=== PATIENT | male | born 1955 | race Caucasian/White ===

== ENCOUNTER 2017-08-02 08:03 | Emergency (ER) | payer MEDICARE ==
[2017-08-02] MEDS ORDERED: Meclizine TAB* 12.5 MG PO ONE (08:46)
[2017-08-02 09:22] LABS: ABS Basophils 0 10^3/ul (0-0.2); ABS Eosinophils 0.2 10^3/ul (0-0.6); ABS Lymphocytes 1.2 10^3/ul (1.0-4.8); ABS Monocytes 0.6 10^3/ul (0-0.8); ABS Neutrophils 10.3 10^3/ul (1.5-7.7); ABS Nucleated RBC 0 10^3/ul; Eosinophil % 1.4 % (0-6); Hematocrit 43 % (42-52); Hemoglobin 14.5 g/dl (14.0-18.0); Mean Corpuscular HGB Conc 34 g/dl (31-36); Mean Corpuscular Hemoglobin 30 pg (27-31); Mean Corpuscular Volume 90 fL (80-94); Mean Platelet Volume 9 um3 (7.4-10.4); Nucleated Red Blood Cells % 0; Platelet Count 114 10^3/ul (150-450); Red Blood Count 4.78 10^6/ul (4.0-5.4); Red Cell Distribution Width 13 % (10.5-15); White Blood Count 12.4 10^3/ul (3.5-10.8)
--- NOTE | 2017-08-02 09:25 | RAD ---
INDICATION: Vertigo. COMPARISON: Comparison is made with prior CT of the brain from July 20, 2015. TECHNIQUE: Contiguous axial sections of the brain were obtained from the skull base to the vertex without contrast. FINDINGS: The ventricles, cisterns and sulci are within normal limits. No significant focal abnormality or mass effect is seen. There is no evidence for hemorrhage. There is a 1.2 cm nodular density in the right maxillary sinus most consistent with a mucous retention cyst or polyp. There is mild mucosal thickening within the ethmoid air cells. The visualized portion of the paranasal sinuses and mastoid air cells otherwise appear clear. IMPRESSION: NO EVIDENCE FOR GROSS ACUTE INFARCT, MASS EFFECT OR HEMORRHAGE.
[2017-08-02 09:29] LABS: INR 0.9 (0.77-1.02)
[2017-08-02 09:38] LABS: EGFR Non-African American 92.9 (>60)
[2017-08-02 11:57] LABS: Urine Appearance Cloudy; Urine Blood Negative (Negative); Urine Color Yellow; Urine Ketones 1+ (Negative); Urine Protein Negative (Negative); Urine Specific Gravity 1.024 (1.010-1.030); Urine Urobilinogen Negative (Negative)
[2017-08-02 12:50] VITALS: BP 151/82
--- NOTE | 2017-08-02 18:36 | ED ---
Remy Mcfadden Angela, scribed for Arnel Ryan MD on 08/02/17 at 0821 . Dizziness - HPI Summary HPI Summary: This pt is a 61 y/o male presenting to [facility] c/o dizziness since this morning. Pt reports when he gets up he can't stand up. He describes his dizziness as difficulty with balance. He additionally notes tinnitus. Denies visual changes. His dizziness is aggravated with movement and is alleviated with closing his eyes. PMHx includes chronic back pain for which he takes tramadol, TIA. Pt notes during his past TIA, pt had similar symptoms to today's. NKDA. - History Of Current Complaint Chief Complaint: EDDizziness Stated Complaint: DIZZY, SWEATING, Time Seen by Provider: 08/02/17 08:17 Hx Obtained From: Patient Onset/Duration: Still Present Timing: Hours Severity Currently: Moderate Character: Dizzy - balance problems Aggravating Factor(s): Other - movement Alleviating Factor(s): Closing Eyes Associated Signs And Symptoms: Positive: Tinnitus, Unsteady Gait. Negative: Vomiting, Visual Changes - Allergies/Home Medications Allergies/Adverse Reactions: Allergies Allergy/AdvReac Type Severity Reaction Status Date / Time Bee Venom Allergy Facial Verified 06/21/16 14:50 Redness/Flushing Home Medications: Home Medications Amphetamine MIXED SALT TAB* [Adderall TAB*] 5 mg PO .DAILY@1200 08/02/17 [ History Confirmed 08/02/17] Amphetamine MIXED SALT TAB* [Adderall TAB*] 10 mg PO QAM 08/02/17 [History Confirmed 08/02/17] Metoprolol Succinate XL TAB* [Toprol XL TAB*] 12.5 mg PO QPM 08/02/17 [History Confirmed 08/02/17] Simvastatin TAB(NF) [Zocor(NF)] 20 mg PO BEDTIME 08/02/17 [History Confirmed 06/09] clonazePAM TAB(*) [KlonoPIN TAB(*)] 0.25 - 0.5 mg PO BID PRN 08/02/17 [History Confirmed 08/02/17] traMADol TAB* [Ultram*] 50 mg PO Q6HR PRN 08/02/17 [History Confirmed 08/02/17] PMH/Surg Hx/FS Hx/Imm Hx Endocrine/Hematology History: Denies: Hx Anticoagulant Therapy, Hx Diabetes, Hx Thyroid Disease Cardiovascular History: Reports: Hx Hypertension Denies: Hx Pacemaker/ICD Respiratory History: Denies: Hx Asthma, Hx Chronic Obstructive Pulmonary Disease (COPD) GI History: Reports: Hx Gastroesophageal Reflux Disease - IMPROVED AFTER GALLBLADDER REMOVED History: Reports: Hx Kidney Stones - AT AGE 18, Other Problems/Disorders - DIVERTICULUM BLADDER- 15 YEARS AGO- SURGERY FOR Denies: Hx Renal Disease Musculoskeletal History: Reports: Hx Arthritis, Hx Back Problems, Other Musculoskeletal History - SCIATICA LEFT LEG Sensory History: Denies: Hx Contacts or Glasses, Hx Hearing Aid Opthamlomology History: Denies: Hx Contacts or Glasses Neurological History: Reports: Other Neuro Impairments/Disorders - BIPOLAR Denies: Hx Dementia, Hx Seizures Psychiatric History: Reports: Hx Anxiety, Hx Depression Denies: Hx Eating Disorder, Hx Panic Disorder, Hx of Violent Episodes Against Others, Hx Substance Abuse - Surgical History Surgery Procedure, Year, and Place: BLADDER/ GALLBLADDER 15 YEARS AGO. HERNIA REPAIR, BACK SURGERY 2011 Hx Anesthesia Reactions: No Infectious Disease History: Denies: Hx Hepatitis, Hx Human Immunodeficiency Virus (HIV), Traveled Outside the [place] in Last 30 Days - Family History Known Family History: Positive: Other - Father: brain tumor - Social History Alcohol Use: None Substance Use Type: Reports: None Smoking Status (MU): Current Every Day Smoker Type: Cigarettes Amount Used/How Often: 18 cigarettes/day Have You Smoked in the Last Year: Yes Review of Systems Negative: Fever, Chills Negative: Blurred Vision, Diplopia Positive: Other - tinnitus Respiratory: Negative Gastrointestinal: Negative Neurological: Other - POS: dizziness All Other Systems Reviewed And Are Negative: Yes Physical Exam - Summary Physical Exam Summary: Appearance: The patient is well-nourished in no acute distress and in no acute pain. Skin: The skin is warm and dry and skin color reflects adequate perfusion. HEENT: The head is normocephalic and atraumatic. The pupils are equal and reactive. The conjunctivae are clear and without drainage. Pt has horizontal nystagmus with a vast component on the left that doesn't fatigue. Nares are patent and without drainage. Mouth reveals moist mucous membranes and the throat is without erythema and exudate. The external ears are intact. The ear canals are patent and without drainage. The tympanic membranes are intact. Neck: the neck is supple with full range of motion and non-tender. There are no carotid bruits. There is no neck vein distension. Respiratory: Chest is non-tender. Lungs are clear to auscultation and breath sounds are symmetrical and equal. Cardiovascular: Heart is regular rate and rhythm. There is no murmur or rub auscultated. There is no peripheral edema and pulses are symmetrical and equal. Abdomen: The abdomen is soft and non-tender. There are normal bowel sounds heard in all four quadrants and there is no organomegaly palpated. Musculoskeletal: There is no back tenderness noted. Extremities are non-tender with full range of motion. There is good capillary refill. There is no peripheral edema or calf tenderness elicited. Neurological: Patient is alert and oriented to person, place and time. The patient has symmetrical motor strength in all four extremities. Cranial nerves are grossly intact. Pt has horizontal nystagmus with a vast component on the left that doesn't fatigue. Psychiatric: The patient has an appropriate affect and does not exhibit any anxiety or depression. Triage Information Reviewed: Yes Vital Signs On Initial Exam: Initial Vitals Temp Pulse Resp BP Pulse Ox 96.8 F 67 8 162/84 96 08/02/17 08:09 08/02/17 08:09 08/02/17 08:09 08/02/17 08:09 08/02/17 08:09 Vital Signs Reviewed: Yes - Paul Coma Scale Coma Scale Total: 15 Diagnostics - Vital Signs Vital Signs Temp Pulse Resp BP Pulse Ox 08/02/17 08:09 96.8 F 67 8 162/84 96 - Laboratory Lab Results: Lab Results 08/02/17 08/02/17 08/02/17 Range/Units 09:07 09:07 09:07 WBC 12.4 H (3.5-10.8) 10^3/ul RBC 4.78 (4.0-5.4) 10^6/ul Hgb 14.5 (14.0-18.0) g/dl Hct 43 (42-52) % MCV 90 (80-94) fL MCH 30 (27-31) pg MCHC 34 (31-36) g/dl RDW 13 (10.5-15) % Plt Count 114 L (150-450) 10^3/ul MPV 9 (7.4-10.4) um3 Neut % (Auto) 83.5 H (38-83) % Lymph % (Auto) 10.0 L (25-47) % [place]field % (Auto) 4.7 (1-9) % Eos % (Auto) 1.4 (0-6) % Baso % (Auto) 0.4 (0-2) % Absolute Neuts (auto) 10.3 H (1.5-7.7) 10^3/ul Absolute Lymphs (auto) 1.2 (1.0-4.8) 10^3/ul Absolute Monos (auto) 0.6 (0-0.8) 10^3/ul Absolute Eos (auto) 0.2 (0-0.6) 10^3/ul Absolute Basos (auto) 0 (0-0.2) 10^3/ul Absolute Nucleated RBC 0 10^3/ul Nucleated RBC % 0 INR (Anticoag Therapy) 0.90 (0.77-1.02) Sodium 137 (133-145) mmol/L Potassium 4.0 (3.5-5.0) mmol/L Chloride 104 (101-111) mmol/L Carbon Dioxide 28 (22-32) mmol/L Anion Gap 5 (2-11) mmol/L BUN 15 (6-24) mg/dL Creatinine 0.84 (0.67-1.17) mg/dL Est GFR ( Amer) 119.5 (>60) Est GFR (Non-Af Amer) 92.9 (>60) BUN/Creatinine Ratio 17.9 (8-20) Glucose 176 H (70-100) mg/dL Lactic Acid (0.5-2.0) mmol/L Calcium 9.3 (8.6-10.3) mg/dL Magnesium 2.0 (1.9-2.7) mg/dL Total Bilirubin 0.30 (0.2-1.0) mg/dL AST 20 (13-39) U/L ALT 23 (7-52) U/L Alkaline Phosphatase 48 (34-104) U/L Troponin I 0.01 (<0.04) ng/mL C-Reactive Protein 1.27 (< 5.00) mg/L Total Protein 6.5 (6.4-8.9) g/dL Albumin 4.2 (3.2-5.2) g/dL Globulin 2.3 (2-4) g/dL Albumin/Globulin Ratio 1.8 (1-3) TSH 1.58 (0.34-5.60) mcIU/mL Urine Color Urine Appearance Urine pH (5-9) Ur Specific [place] (1.010-1.030) Urine Protein (Negative) Urine Ketones (Negative) Urine Blood (Negative) Urine Nitrate (Negative) Urine Bilirubin (Negative) Urine Urobilinogen (Negative) Ur Leukocyte Esterase (Negative) Urine Glucose (Negative) 08/02/17 08/02/17 Range/Units 09:07 11:30 WBC (3.5-10.8) 10^3/ul RBC (4.0-5.4) 10^6/ul Hgb (14.0-18.0) g/dl Hct (42-52) % MCV (80-94) fL MCH (27-31) pg MCHC (31-36) g/dl RDW (10.5-15) % Plt Count (150-450) 10^3/ul MPV (7.4-10.4) um3 Neut % (Auto) (38-83) % Lymph % (Auto) (25-47) % Whitfield % (Auto) (1-9) % Eos % (Auto) (0-6) % Baso % (Auto) (0-2) % Absolute Neuts (auto) (1.5-7.7) 10^3/ul Absolute Lymphs (auto) (1.0-4.8) 10^3/ul Absolute Monos (auto) (0-0.8) 10^3/ul Absolute Eos (auto) (0-0.6) 10^3/ul Absolute Basos (auto) (0-0.2) 10^3/ul Absolute Nucleated RBC 10^3/ul Nucleated RBC % INR (Anticoag Therapy) (0.77-1.02) Sodium (133-145) mmol/L Potassium (3.5-5.0) mmol/L Chloride (101-111) mmol/L Carbon Dioxide (22-32) mmol/L Anion Gap (2-11) mmol/L BUN (6-24) mg/dL Creatinine (0.67-1.17) mg/dL Est GFR ( Amer) (>60) Est GFR (Non-Af Amer) (>60) BUN/Creatinine Ratio (8-20) Glucose (70-100) mg/dL Lactic Acid 1.0 (0.5-2.0) mmol/L Calcium (8.6-10.3) mg/dL Magnesium (1.9-2.7) mg/dL Total Bilirubin (0.2-1.0) mg/dL AST (13-39) U/L ALT (7-52) U/L Alkaline Phosphatase (34-104) U/L Troponin I (<0.04) ng/mL C-Reactive Protein (< 5.00) mg/L Total Protein (6.4-8.9) g/dL Albumin (3.2-5.2) g/dL Globulin (2-4) g/dL Albumin/Globulin Ratio (1-3) TSH (0.34-5.60) mcIU/mL Urine Color Yellow Urine Appearance Cloudy Urine pH 7.0 (5-9) Ur Specific [place] 1.024 (1.010-1.030) Urine Protein Negative (Negative) Urine Ketones 1+ H (Negative) Urine Blood Negative (Negative) Urine Nitrate Negative (Negative) Urine Bilirubin Negative (Negative) Urine Urobilinogen Negative (Negative) Ur Leukocyte Esterase Negative (Negative) Urine Glucose 1+(50 mg/dl) H (Negative) Result Diagrams: 08/02/17 09:07 08/02/17 09:07 Lab Statement: Any lab studies that have been ordered have been reviewed, and results considered in the medical decision making process. - CT Brain CT CT Interpretation: No Acute Changes - IMPRESSION: No evidence for gross acute infarct, mass effect or hemorrhage. Dr. Ryan has reviewed this radiology report. CT Interpretation Completed By: Radiologist - EKG 08:12 Cardiac Rate: NL EKG Rhythm: Sinus Rhythm - at 67 bpm EKG Interpretation: Left axis deviation Dizzy Course/Dx - Course Course Of Treatment: Mr. Johnson presented with what seemed to be a peripheral vertigo. His W/U was negative and he improved a lot with meclizine. Dr. Trivedi saw him and felt that is was peripheral and he was safe to go with symptomatic treatment. - Diagnoses Provider Diagnoses: Peripheral vertigo - Provider Notifications Discussed Care Of Patient With: Kevin Trivedi Time Discussed With Above Provider: 10:17 Instructed by Provider To: Other - I discussed pt care with Dr. Trivedi, neurologist, who will come see the pt in the ED. Discharge - Discharge Plan Condition: Stable Disposition: HOME Prescriptions: Meclizine TAB* [Antivert 12.5 TAB*] 25 mg PO TID PRN #20 tab PRN Reason: Dizziness Ondansetron ODT TAB* [Zofran Odt TAB*] 4 mg PO Q6H PRN #20 tab.odt PRN Reason: Nausea/Vomiting Patient Education Materials: Vertigo (ED) Referrals: Frantz Weathers MD [Primary Care Provider] - Additional Instructions: Please follow up with your primary care provider next week. RETURN TO THE ED FOR ANY WORSENING SYMPTOMS. The documentation as recorded by the Remy davis Angela accurately reflects the service I personally performed and the decisions made by me, Arnel Ryan MD.
--- NOTE | 2017-08-02 20:53 | CONS ---
NEUROLOGY CONSULTATION: DATE OF CONSULTATION: 08/02/17 LOCATION: He is in the emergency room. REFERRING PHYSICIAN: Dr. Ryan. CHIEF COMPLAINT: Dizziness. HISTORY OF PRESENT ILLNESS: Dustin Johnson is a 61-year-old man who was in his usual state of health when he got up this morning. Shortly thereafter, he started to feel somewhat dizzy. It progressed over about 45 minutes to the point where he felt nauseous and very dizzy with a tendency to veer to the right. He presented to the emergency room. Since he has been here, he has received some meclizine and he feels a little bit better. He still has some nausea, but has not vomited. Prior to this morning, he had been feeling reasonably well. He has not had any recent colds, fevers, sore throats, earaches, or other signs or symptoms of infectious illness. He has not had any changes in his chronic medical therapies. He has not noticed any change in hearing or ear pain. There is no history of recent trauma. His has had upper respiratory infection and she is present and provides additional history. 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 He was admitted with vertigo and had a normal brain MRI in 2006. 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 MEDICATIONS: At home are: 1. Lamotrigine 400 mg p.o. daily. 2. Adderall 10 mg p.o. q.a.m. and 5 mg at noon. 3. Clonazepam 0.25 mg b.i.d. p.r.n. anxiety. 4. Metoprolol 12.5 mg p.o. daily. 5. Tramadol 50 mg p.o. q. 6 hours p.r.n. back pain. 6. Simvastatin 20 mg p.o. daily. 7. Trazodone 50 mg p.o. q.h.s. ALLERGIES: He is allergic to BEE STINGS. FAMILY HISTORY: Noncontributory. REVIEW OF SYSTEMS: Negative for recent fevers, colds, intestinal problems other than the nausea, head injuries, headaches, change in vision, numbness in the any of his limbs other than chronically in the left foot, rashes. There is no history of heart disease. PHYSICAL EXAMINATION: He is well nourished and well hydrated, lying still in his emergency room bed. Temperature 97.7, blood pressure is running about 140 to 150/70 to 80, heart rate is in the 60s and in sinus on the monitor. Respiratory rate is 16 and oxygen saturation is 95% on room air. Lungs are clear. Skin is warm and dry. Oral mucosa is moist and atraumatic. Heart is in a regular rate and rhythm without murmurs. Carotid pulses are symmetrical and there are no anterior or posterior cervical bruits. Tympanic membranes are clear bilaterally. Neurologic Exam: Pupils react equally in dim light from 4 down to 2.5 mm. Funduscopic exam is normal bilaterally. Visual ron are full to confrontation. There is left-beating nystagmus in primary position, which is accentuated in left gaze. There is a little bit of it present in upgaze, but none in right gaze and none in downgaze. There is no ptosis. Facial musculature is symmetric. Facial sensation to pin, light touch, and temperature is symmetric. Palate and tongue appear normal, tongue protrudes in the midline and palate rises symmetrically. There is no dysarthria. Hearing to tuning fork is intact bilaterally and Cohen's test is midline. Neck strength is intact. Motor exam reveals normal muscle tone, bulk, and strength proximally and distally other than mild left ankle dorsiflexor weakness. Finger taps are normal in the hands. [id number] maneuver is normal bilaterally. Past pointing maneuver drifts to the right in both the right and the left arm. [id number] maneuver is normal. Sensory exam is notable for intact vibration, pin discrimination, light touch, and proprioception other than decreased pin in the left lateral foot. Reflexes are hypoactive but present and symmetric, trace at the knees, grade 1 at the right ankle and trace at the left. Plantar responses are flexor bilaterally. Head thrust test reveals a corrective saccade with head thrust to the left. He is alert and oriented and a good detailed historian. Memory is intact and language is fluent. He has good attention, concentration, fund of knowledge. LABORATORY DATA: Includes a CT of the brain, which I reviewed and which looks normal and was interpreted as such. His CBC is notable for a slightly elevated white blood cell count at 12.4, platelet count 114,000, neutrophils 83%. The platelet count is similar to prior platelet counts, which are generally around 140,000 for the last several years. His chemistry is notable for nonfasting glucose of 176 and is otherwise a normal chemistry profile. TSH normal at 1.58. IMPRESSION: Impression is that of vestibular neuronitis. He has a pretty typical exam for a peripheral vestibular lesion. I do not see any evidence of infection externally and explained to him the most cases are probably due to recurrence of herpes simplex virus. He has achieved some symptomatic benefit with meclizine. I do not think he needs an MRI scan of the brain as I do not think he has any other signs or symptoms to suggest a cerebrovascular event. If he is able to be discharged home after fluids, meclizine, and antiemetic, then I think he could be discharged home. I told him that the prognosis is usually for gradual recovery over anywhere from a couple of days to a few weeks. If symptoms do not resolve in relatively short time frame, I would be happy to see him in followup in my office. [id number]/[facility] #: [id number] YUE
== END 2017-08-02 12:50 | disposition home or self-care (01) ==
LOC: ED 08:03
DX: H81.399 Other peripheral vertigo, unspecified ear (principal); H93.19 Tinnitus, unspecified ear; F17.210 Nicotine dependence, cigarettes, uncomplicated; Z87.19 Personal history of other diseases of the digestive system; Z87.442 Personal history of urinary calculi; M54.9 Dorsalgia, unspecified; R61 Generalized hyperhidrosis; Z86.73 Personal history of transient ischemic attack (TIA), and cerebral infarction without residual deficits
CPT/HCPCS: 36415; 70450; 80053; 81003; 83605; 83735; 84443; 84484; 85025; 85610; 86140; 93005; 99283; A9270-GY